=== PATIENT | female | born 1980 | race African-American/Black ===

== ENCOUNTER → 2020-07-23 | Outpatient (CLI) | payer MEDICAID ==
[2016-07-21 15:57] VITALS: BP 105/63
[~2020-07-23] MED LIST: HYDR-3164 PO; NAPR-682 PO; ORPH100T PO
--- NOTE | 2020-07-23 11:04 | RAD ---
EXAMINATION: DIGITAL DIAGNOSTIC BILATERAL History: Reason: BILATERAL BREAST PAIN / Spl. Instructions: / History: Comparison: None. This exam is the baseline. Technique: Bilateral digital diagnostic mammogram views were obtained. CAD was utilized. 3-D tomosynthesis images were acquired. Findings: Breast Tissue Density C : The breasts are heterogeneously dense, which may obscure small masses. There are no dominant masses, suspicious microcalcifications, or architectural distortion. Benign-appearing lymph nodes are present. IMPRESSION: No mammographic evidence of malignancy. Recommend routine screening. BI-RADS category 1: Negative. The images were reviewed with computer aided detection. Patient information is entered into the reminder system with a target due date for the next screening mammogram. Mammography is the most sensitive method for finding small breast cancers, but it does not detect them all and is not a substitute for careful clinical examination. A negative mammogram does not negate a clinically suspicious finding and should not result in delay in biopsying a clinically suspicious abnormality. "Our facility is accredited by the [employer] Mammography Program." Electronically signed by: Kevin Patel MD (07/23/2020 11:02 AM) [id number]
== END ==
LOC: MAMMO 09:43
PROVIDERS: ATTEND Family Medicine
DX: R92.2 Inconclusive mammogram (principal); N64.4 Mastodynia
CPT/HCPCS: 77066

== ENCOUNTER → 2021-11-28 | Outpatient (CLI) | payer MEDICAID ==
[2016-07-21 15:57] VITALS: BP 105/63
--- NOTE | 2021-11-28 16:42 | KCIC ---
XR CHEST 2V INDICATION: ACUTE BRONCHITIS, COUGH, SOA, NON SMOKER, COVID 07/17 . COMPARISON STUDY: None. FINDINGS: Lungs: Normal lung volume. No pulmonary mass or consolidation. The tracheobronchial tree and hilar st ructures are normal. Pleura: No pleural effusion or pneumothorax. Heart and Mediastinum: The cardiomediastinal silhouette is normal. The great vessels of the thorax ar e normal. Bones and Soft Tissues: The bones and soft tissues are within normal limits. IMPRESSION: No consolidation. Electronically signed by: Houston Becker MD (11/28/2021 4:40 PM) [id number]
== END ==
LOC: KCIC 13:45
PROVIDERS: ATTEND Family Medicine
DX: J20.9 Acute bronchitis, unspecified (principal)
CPT/HCPCS: 71046